=== PATIENT | female | born 1960 | race Two or more races ===

== ENCOUNTER 2017-03-01 10:52 | Day surgery (SDC) | payer OTHER ==
[~2017-03-01] VITALS: Ht 157.5 cm; Wt 73.0 kg
[~2017-03-01 10:52] MED LIST: CALPHRON667 MG PO; COZAAR50 MG PO; LABETALOL HCL100 MG PO; LEVO-T50 MCG PO; LIPITOR20 MG PO; NORVASC10 MG PO
[2017-03-01 11:41] VITALS: BP 126/86
[2017-03-01 11:43] LABS: HEMATOCRIT 26.2 % (36.0-46.0); MCH 31.3 PG (29.0-34.0); MCHC 31.7 G/DL (30.0-36.0); MCV 98.9 FL (83-99); MEAN PLAT.VOLUME 10.4 uM^3 (9.5-12.4); PLATELET COUNT 111 K/uL (156-360); RBC DIS.WIDTH-CV 17.3 % (11.8-14.6); RBC DIS.WIDTH-SD 63.1 % (39-53); RED BLOOD COUNT 2.65 M/uL (3.80-5.20)
[2017-03-01 12:31] LABS: ANION GAP 11 MEQ/L (2-14); CHLORIDE 95 MEQ/L (99-109); GFR ESTIMATE (CALCULATED) 5 mL/min/; GLUCOSE 88 mg/dL (70-99); SAMPLE HEMOLYSIS CHECK 0; SAMPLE ICTERIC CHECK 0; SAMPLE LIPEMIA CHECK 0; SODIUM 138 MEQ/L (136-147); UREA NITROGEN (BUN) 46 mg/dL (9-23)
[2017-03-01 13:39] LABS: METH RESISTANT S AUREUS PCR NEGATIVE (NEGATIVE)
[2017-03-01 13:40] LABS: PROBE CHECK PASS; SPECIMEN PROCESSING CONTROL PASS
[2017-03-01 15:06] LABS: POINT-OF-CARE METER ID UU13113694
[2017-03-01 15:14] LABS: POINT-OF-CARE METER ID UU13113694
[2017-03-01 16:35] LABS: POINT-OF-CARE METER ID UU13113675
[2017-03-01 18:10] VITALS: BP 142/79
[2017-03-01 19:10] VITALS: BP 147/87
[2017-03-04 10:18] LABS: POINT-OF-CARE METER ID UU13113694
== END 2017-03-01 19:19 | disposition home or self-care (01) ==
LOC: SDC 10:52
PROVIDERS: Surgery
PROC: 0WHG43Z Insertion of Infusion Device into Peritoneal Cavity, Percutaneous Endoscopic Approach (ICD-10-PCS; principal; 2017-03-01)
DX: I12.0 Hypertensive chronic kidney disease with stage 5 chronic kidney disease or end stage renal disease (principal); N18.6 End stage renal disease; Z99.2 Dependence on renal dialysis; Z90.5 Acquired absence of kidney; N73.6 Female pelvic peritoneal adhesions (postinfective); E78.00 Pure hypercholesterolemia, unspecified; Z88.2 Allergy status to sulfonamides; Z82.3 Family history of stroke; Z82.49 Family history of ischemic heart disease and other diseases of the circulatory system; Z84.1 Family history of disorders of kidney and ureter; Z87.891 Personal history of nicotine dependence
CPT/HCPCS: 80048; 82948; 84132 91; 85027; 87641; 93005; C1750; J0330; J0690; J1170; J2250; J2405; J3010

== ENCOUNTER 2017-10-04 06:11 | Day surgery (SDC) | payer OTHER ==
[~2017-10-04] VITALS: Ht 157.5 cm; Wt 65.7 kg
[~2017-10-04 06:11] MED LIST changes: +APRESOLINE10 MG PO; +CALCIUM ACETAT667 MG PO; +DILAUDID2 MG PO; +FLONASE16 G1 BOTH NARES; +HYDROCODON-ACE1 EAC7 PO; +IMDUR30 MG PO; +LEXAPRO10 MG PO; +NORMODYNE,TRAN200 MG PO; +NORVASC5 MG PO; +RENAL-VITE TAB0.8 MG PO; +SYNTHROID50 MCG PO; +TRAZODONE HCL50 MG PO; +ZESTRIL40 MG PO
[2017-10-04 06:35] VITALS: BP 120/81
[2017-10-04 07:33] LABS: HEMATOCRIT 30.3 % (36.0-46.0); HEMOGLOBIN 9.8 G/DL (11.9-15.5); MCH 31.5 PG (29.0-34.0); MCHC 32.3 G/DL (30.0-36.0); MCV 97.4 FL (83-99); PLATELET COUNT 203 K/uL (156-360); RBC DIS.WIDTH-CV 12.5 % (11.8-14.6); RBC DIS.WIDTH-SD 44.8 % (39-53); RED BLOOD COUNT 3.11 M/uL (3.80-5.20); WHITE BLOOD COUNT 6.7 K/uL (4.1-10.2)
[2017-10-04 07:38] LABS: CHLORIDE 98 MEQ/L (99-109); CREATININE 9.1 MG/DL (0.6-1.3); GFR ESTIMATE (CALCULATED) 5 mL/min/; GLUCOSE 95 mg/dL (70-99); POTASSIUM 4.8 MEQ/L (3.7-5.4); SODIUM 137 MEQ/L (136-147); UREA NITROGEN (BUN) 57 mg/dL (9-23)
[2017-10-04] MEDS ORDERED: NORCO 5/3251 TABLET PO (08:39)
[2017-10-04 11:20] VITALS: BP 105/65
[2017-10-04 12:43] VITALS: BP 112/66
== END 2017-10-04 12:49 | disposition home or self-care (01) ==
LOC: SDC
PROVIDERS: Surgery
PROC: 0JB80ZZ Excision of Abdomen Subcutaneous Tissue and Fascia, Open Approach (ICD-10-PCS; principal; 2017-10-04)
DX: L72.0 Epidermal cyst (principal); I12.9 Hypertensive chronic kidney disease with stage 1 through stage 4 chronic kidney disease, or unspecified chronic kidney disease; N18.9 Chronic kidney disease, unspecified; Z99.2 Dependence on renal dialysis; E78.5 Hyperlipidemia, unspecified; F32.9 Major depressive disorder, single episode, unspecified; E03.9 Hypothyroidism, unspecified
CPT/HCPCS: 80048; 85027; 87641; 88304; J0131; J0690; J1100; J1170; J2250; J2405; J2710; J3010; S0020